=== PATIENT | male | born 1955 | race Caucasian/White ===

== ENCOUNTER 2018-05-19 13:18 | Emergency (ER) | payer OTHER ==
[~2018-05-19] VITALS: Ht 182.9 cm; Wt 88.5 kg
[2018-05-19] MEDS ORDERED: NORCO 5-325 TA1 EAC1 PO (13:44)
[2018-05-19] MEDS ORDERED: KEFLEX500 M1 PO (13:44)
[2018-05-19 14:09] VITALS: BP 122/85
== END 2018-05-19 14:09 | disposition home or self-care (01) ==
LOC: M.ERS 13:18
DX: S92.412A Displaced fracture of proximal phalanx of left great toe, initial encounter for closed fracture (principal); W20.8XXA Other cause of strike by thrown, projected or falling object, initial encounter; Y93.89 Activity, other specified; Y92.89 Other specified places as the place of occurrence of the external cause; Y99.8 Other external cause status

== ENCOUNTER 2021-09-16 16:44 | Emergency (ER) | payer OTHER ==
[~2021-09-16] VITALS: Ht 182.9 cm; Wt 81.7 kg
[~2021-09-16 16:44] MED LIST: KEFLEX500 M1 PO; NORCO 5-325 TA1 EAC1 PO
[2021-09-16] MEDS ORDERED: HYDROCODON-ACE1 EAC7 PO (20:20)
[2021-09-16 20:34] VITALS: BP 120/76
== END 2021-09-16 20:35 | disposition home or self-care (01) ==
LOC: M.ERS 16:44
DX: S63.285A Dislocation of proximal interphalangeal joint of left ring finger, initial encounter (principal); W19.XXXA Unspecified fall, initial encounter; Y93.89 Activity, other specified; Y92.89 Other specified places as the place of occurrence of the external cause; Y99.8 Other external cause status